=== PATIENT | male | born 1950 | race Hispanic/Latino ===

== ENCOUNTER 2024-09-24 07:19 | Emergency (ER) | payer OTHER ==
[~2024-09-24] VITALS: Ht 170.2 cm; Wt 73.5 kg
[2024-09-24] MEDS: ORPHENADRINE 60MG/2ML IM ONE (07:59)
[2024-09-24] MEDS: TRIAMCINOLONE ACETONIDE 40 MG/ML 1ML VIAL IM ONE (07:59)
[2024-09-24] MEDS ORDERED: METH-662 PO (08:43)
[2024-09-24] MEDS ORDERED: LIDO-112 TP (08:43)
--- NOTE | 2024-09-24 08:43 | ERN ---
General Chief Complaint: Lower Extremity Pain/Injury Stated Complaint: LEG PAIN Time Seen by MD: 07:21 Source: patient History of Present Illness Initial Comments Patient is a 74-year-old male coming in to be evaluated for left leg pain. Patient states that the left leg pain has been ongoing for greater than two weeks. He has been evaluated by his PCP x-rays and MRIs were performed. Patient states that he has not gotten the results but states that the pain initiated from in his left gluteal region and radiates down his left leg. Allergies: Coded Allergies: No Known Drug Allergies (Unverified Allergy, Unknown, 09/24/24) Past Medical History Past Medical History: Hypertension Medical History Other: THYROID PROBLEM Past Surgical History: Other Surgical History Other: PROSTATES SURGERY ROS Dictation CONSTITUTIONAL: No chills, no fever, no weakness, no diaphoresis, no malaise. HEAD/FACE: No signs of trauma. EENT: No eye pain, no blurred vision, no tearing, no double vision, no ear pain, no ear discharge, no nose pain, no nasal congestion, no throat pain, no throat swelling, no mouth pain. RESPIRATORY: No cough, no orthopnea, no SOB, no stridor, no wheezing. CARDIOVASCULAR: No chest pain, no edema, no palpitations, no syncope. GASTROINTESTINAL/ABDOMINAL: No abdominal pain, no constipation, no diarrhea, no nausea, no vomiting. GENITOURINARY: No abnormal discharge, no dysuria, no frequent urination, no hematuria. No complaints of pain in the genitals. MUSCULOSKELETAL: No back pain, no gout, no joint pain, no joint swelling, muscle pain, no muscle stiffness, no neck pain. INTEGUMENTARY: No change in color, no change in hair/nails, no dryness, no lesion, no lumps, no rash. NEUROLOGICAL/PSYCH: No anxiety, not depressed, no emotional problem, no headache, no numbness, no pre-existing deficit, no history of seizures, no tremors, no weakness. HEMATOLOGIC/LYMPHATIC: Not anemic, no history of blood clots, no apparent bleeding, no bruising, glands not swollen. All Systems Negative, Except as Noted. Physical Exam Physical Exam Dictation VITAL SIGNS: Reviewed. GENERAL APPEARANCE: Alert, oriented x3, no acute distress, obese. HEAD AND FACE: Non-traumatic. EYES: PERRL, pink conjunctivas, eyelid no trauma, anterior chamber clear. EARS: Pinnas intact and no signs of trauma or erythema. Ear canals clear and no discharge. TMs no erythema. NOSE: No discharge, no bleeding. OROPHARYNX: Mouth normal, teeth no caries, tongue pink. Pharynx clear, no erythema. Tonsils no exudates, no abscesses noted. Mucous membrane moist. NECK: Supple, non-tender, no thyromegaly, no masses, no JVD, no bruits. BREAST: Deferred. CHEST: No tenderness, no crepitus, no paradoxical movement, no retractions. LUNGS: Clear, well-ventilated, symmetric, no rales, no wheezing, no rhonchi, no stridor, good breath sounds bilaterally. HEART: Regular rate, regular rhythm, no murmur, no gallops. VASCULAR: No peripheral edema. ABDOMEN: Soft, positive bowel sounds, nondistended, no guarding, nontender, no rebound, no masses no hepatomegaly, no splenomegaly, no Hammond's sign, no hernias. RECTAL: Deferred. GENITAL: Deferred. NEUROLOGICAL: Normal speech, gross motor function intact, gross sensory function intact. MUSCULOSKELETAL: Neck nontender, full range of motion, back nontender, full range of motion. EXTREMITIES: Nontender, full range of motion. Left leg pain initiated from left piriformis muscle, pain is exacerbated with flexion and extension. SKIN: Color pink, dry, no turgor, no rash, no lacerations, no abrasions, no contusions. LYMPHATICS: Deferred. MDM MDM: Differential diagnosis: Left leg sciatica, left piriformisitis Rationale: Tests considered and ordered secondary to shared decision making include: Previous outside records reviewed: Old ER visits. Risk of complication and/or morbidity or mortality of patient management: None Medications-Per medication reconciliation Patient is a 74-year-old male coming in to be evaluated for left leg pain. Patient states that he has had a previous MRI and x-ray performed no acute findings were present. On physical exam there is tenderness to the left piriformis muscle radiating down the left leg. He is findings are consistent with left leg sciatica. Patient will be discharged in stable condition with a diagnosis of left leg sciatica did advised him appropriate follow up with PCP in 1-2 days for ongoing evaluation and long-term management. ED Course Orders Procedure Category Date Status Time Orphenadrine Citrate PHA 09/24/24 Complete (Norflex) 07:30 Triamcinolone Acet PHA 09/24/24 Complete 40mg/Ml 1ml (Kenalog 07:30 Current Medications Medications (Trade) Dose Ordered Sig/Twin Route PRN Reason Start Time Stop Time Status Last Admin Dose Admin Orphenadrine Citrate (Norflex) 60 mg ONCE ONCE IM 09/24/24 07:30 09/24/24 07:31 DC 09/24/24 07:59 Triamcinolone Acetonide (Kenalog 40) 40 mg ONCE ONCE IM 09/24/24 07:30 09/24/24 07:31 DC 09/24/24 07:59 Vital Signs Date Time Temp Pulse Resp B/P (MAP) Pulse Ox O2 Delivery O2 Flow Rate FiO2 09/24/24 07:51 97.9 67 18 131/71 93 Room Air* 0 21 09/24/24 07:20 97.9 83 16 133/78 97 Room Air 0 DX & DISP Disposition: Discharge Departure Impression: Primary Impression: Left sided sciatica Condition: Stable Scripts Lidocaine (Pain Relief Patch) 4 % Adh..patch 1 EACH TP DAILY for 5 Days, #5 ADH.PATCH Prov: FARZANEH YEBOAH MD 09/24/24 Methocarbamol (Robaxin) 750 Mg Tab 1 TAB PO BID for 5 Days, #10 TAB 0 Refills Prov: FARZANEH YEBOAH MD 09/24/24 Additional Instructions: FOLLOW-UP WITH PRIMARY CARE PROVIDER IN 1 TO 2 DAYS. TAKE MEDICATIONS DIRECTED HERE IN THE EMERGENCY ROOM. OKAY TO CONTINUE HOME MEDICATIONS UNLESS OTHERWISE DISCUSSED DURING YOUR VISIT IN THE EMERGENCY ROOM TODAY. RETURN TO YOUR NEAREST EMERGENCY ROOM IF SYMPTOMS WORSEN OR IF THERE IS NO IMPROVEMENT. CALL 911 IF YOU NEED IMMEDIATE ASSISTANCE. TAKE TYLENOL [id number] NEEDED AND IF NO CONTRAINDICATIONS ARE PRESENT. INCREASE ORAL HYDRATION. A WOUND CULTURE OR URINE CULTURE WAS ORDERED HERE IN THE EMERGENCY ROOM DEPARTMENT PLEASE FOLLOW-UP WITH PRIMARY CARE PROVIDER AND ADVISE THEM TO GET REPEAT PORTS FROM OUR FACILITY. IF YOU HAD ANY TIM WRAP/SPLINTS THAT WERE APPLIED HERE, PLEASE DO NOT REMOVE THEM UNTIL YOU SEE YOUR PRIMARY CARE OR SPECIALTY. Referrals: Referrals: WICHO MORTENSEN (PCP) Time of Disposition: 08:41 FARZANEH YEBOAH MD September 24, 2024 08:43
[2024-09-24 08:56] VITALS: BP 136/70; PULSE 66; RESP 18; TEMP 98.4; O2SAT 97
--- NOTE | 2024-09-24 09:10 | NUR ---
PT GIVEN INSTRUCTIONS FOR HOME, NO IV AT THIS TIME, PT GIVEN TWO RX TO START TODAY, PT STATES HE FEELS BETTER, DRIVEN HOME BY .
== END 2024-09-24 09:12 | disposition home or self-care (01) ==
LOC: EDH 07:19
DX: M54.32 Sciatica, left side (principal); I10 Essential (primary) hypertension; Z98.890 Other specified postprocedural states
CPT/HCPCS: 99284; 96372 ×2; J3301; J2360